=== PATIENT | male | born 1955 | race Caucasian/White ===

== ENCOUNTER → 2020-07-16 15:53 | Outpatient (CLI) | payer OTHER, SELFPAY ==
[2020-07-16 16:54] LABS: Basophils # 0.1 K/mm3 (0-0.2); Basophils % 1.2 % (0.1-2.0); Eosinophils # 0.2 K/mm3 (0.0-0.4); Eosinophils % 2.6 % (0.1-12.0); Hematocrit 46.9 % (42.0-52.0); Hemoglobin 16.6 g/dL (14.1-18.0); Lymphocytes # 2.9 K/mm3 (0.7-4.5); Lymphocytes % 40.4 % (10-50); Mean Corpuscular HGB Conc 35.4 g/dL (31.8-35.4); Mean Corpuscular Hemoglobin 30.9 pg (27.0-31.2); Mean Corpuscular Volume 87.4 fl (80-94); Mean Platelet Volume 9.1 fl (7.4-10.4); Monocytes # 0.4 K/mm3 (0.1-1.0); Monocytes % 5.7 % (1.7-9.3); Neutrophils # 3.6 K/mm3 (1.8-7.8); Neutrophils % 50.1 % (37.0-80.0); Platelet Count 213 K/mm3 (142-424); Red Blood Count 5.37 M/mm3 (4.60-6.20); Red Cell Distribution Width 13.5 % (11.5-17.5); White Blood Count 7.3 K/mm3 (4.8-10.8)
[2020-07-16 17:30] LABS: Alanine Aminotransferase 59 U/L (12-78); Albumin Level 4.5 g/dl (3.5-5.0); Albumin/Globulin Ratio 1.6 (1.1-1.8); Alkaline Phosphatase 57 U/L (38-126); Anion Gap 13.3 mEq/L (5-15); Aspartate Amino Transferase 51 U/L (17-59); Bilirubin,Total 0.5 mg/dl (0.2-1.3); Blood Urea Nitrogen 15 mg/dl (9-20); Carbon Dioxide 32 mmol/L (22.0-30.0); Chloride 96 mmol/L (98-107); Chol/HDL Ratio 3.7 (1-3.5); Cholesterol 201 mg/dl (140-200); Estimated Glomerular Filt Rate 98 ml/min (>60); GFR (African American) 118 ML/MIN (>60); Globulin 2.9 g/dL (1.3-3.2); Glucose 161 mg/dl (74-100); HDL Cholesterol 55 mg/dl (40-60); Potassium 4.3 mmoL/L (3.5-5.1); Sodium 137 mmol/L (136-145); Total Protein,Serum 7.4 g/dl (6.3-8.2); Triglycerides 202 mg/dl (30-150); VLDL Cholesterol 40 mg/dL (0-40)
[2020-07-16 17:40] LABS: Direct LDL Cholesterol 96.56 mg/dL (100-129)
[2020-07-16 18:00] LABS: Prostate Specific Ag Screen 1.6 ng/ml (0.0-4.0)
== END ==
PROVIDERS: Visit Provider Family Medicine
DX: I10 Essential (primary) hypertension (principal); E78.5 Hyperlipidemia, unspecified; Z12.5 Encounter for screening for malignant neoplasm of prostate; Z98.890 Other specified postprocedural states; Z85.820 Personal history of malignant melanoma of skin
CPT/HCPCS: 80053; 80061; 85025; G0103

== ENCOUNTER → 2022-03-04 08:40 | Outpatient (CLI) | payer OTHER, SELFPAY ==
[2022-03-04 14:18] LABS: Hemoglobin A1C 8.8 % (4.0-6.0)
== END ==
PROVIDERS: PCP Family Medicine; Visit Provider Family Medicine
DX: R73.9 Hyperglycemia, unspecified (principal); Z79.84 Long term (current) use of oral hypoglycemic drugs
CPT/HCPCS: 83036

== ENCOUNTER → 2022-06-28 17:37 | Outpatient (CLI) | payer OTHER, SELFPAY ==
[2022-06-28 15:34] LABS: Alanine Aminotransferase 46 U/L (12-78); Albumin Level 4.6 g/dl (3.5-5.0); Albumin/Globulin Ratio 1.7 (1.1-1.8); Alkaline Phosphatase 53 U/L (38-126); Anion Gap 12.1 mEq/L (5-15); Aspartate Amino Transferase 43 U/L (17-59); Bilirubin,Total 0.4 mg/dl (0.2-1.3); Blood Urea Nitrogen 18 mg/dl (9-20); Calcium 9.9 mg/dl (8.4-10.2); Carbon Dioxide 30 mmol/L (22.0-30.0); Chloride 101 mmol/L (98-107); Chol/HDL Ratio 3.8 (1-3.5); Cholesterol 177 mg/dl (140-200); Estimated Glomerular Filt Rate 85 ml/min (>60); GFR (African American) 102 ML/MIN (>60); Globulin 2.7 g/dL (1.3-3.2); Glucose 147 mg/dl (74-100); HDL Cholesterol 46 mg/dl (40-60); Potassium 4.1 mmoL/L (3.5-5.1); Sodium 139 mmol/L (136-145); Total Protein,Serum 7.3 g/dl (6.3-8.2); Triglycerides 202 mg/dl (30-150); VLDL Cholesterol 40 mg/dL (0-40)
[2022-06-28 15:40] LABS: Basophils # 0.2 K/mm3 (0-0.2); Basophils % 2.8 % (0.1-2.0); Eosinophils # 0.1 K/mm3 (0.0-0.4); Eosinophils % 1.7 % (0.1-12.0); Hematocrit 48.6 % (42.0-52.0); Hemoglobin 16.3 g/dL (14.1-18.0); Lymphocytes % 37.6 % (10-50); Mean Corpuscular HGB Conc 33.4 g/dL (31.8-35.4); Mean Corpuscular Hemoglobin 30.6 pg (27.0-31.2); Mean Corpuscular Volume 91.4 fl (80-94); Mean Platelet Volume 9.8 fl (7.4-10.4); Monocytes # 0.4 K/mm3 (0.1-1.0); Monocytes % 5.4 % (1.7-9.3); Neutrophils # 4.2 K/mm3 (1.8-7.8); Neutrophils % 52.5 % (37.0-80.0); Platelet Count 283 K/mm3 (142-424); Red Blood Count 5.32 M/mm3 (4.60-6.20); White Blood Count 8.1 K/mm3 (4.8-10.8)
[2022-06-28 15:58] LABS: Hemoglobin A1C 7.5 % (4.0-6.0)
[2022-06-28 16:05] LABS: Prostate Specific Ag Screen 1.8 ng/ml (0.0-4.0)
[2022-06-30 08:46] LABS: Direct LDL Cholesterol 92 mg/dL (100-129)
== END ==
LOC: LAB.DROPOF 17:38
PROVIDERS: PCP Family Medicine; Visit Provider Family Medicine
DX: E78.5 Hyperlipidemia, unspecified (principal); I10 Essential (primary) hypertension; E11.9 Type 2 diabetes mellitus without complications; Z79.84 Long term (current) use of oral hypoglycemic drugs; Z12.5 Encounter for screening for malignant neoplasm of prostate
CPT/HCPCS: 80053; 80061; 83036; 85025; G0103

== ENCOUNTER 2023-12-20 19:19 | Outpatient (CLI) | payer MEDICARE, SELFPAY ==
[2023-12-20 18:26] LABS: Alanine Aminotransferase 50 U/L (12-78); Albumin Level 4.3 g/dl (3.5-5.0); Albumin/Globulin Ratio 1.7 (1.1-1.8); Alkaline Phosphatase 64 U/L (38-126); Anion Gap 10.9 mEq/L (5-15); Aspartate Amino Transferase 41 U/L (17-59); Bilirubin,Total 0.5 mg/dl (0.2-1.3); Blood Urea Nitrogen 16 mg/dl (9-20); Calcium 9.3 mg/dl (8.4-10.2); Carbon Dioxide 31 mmol/L (22.0-30.0); Chloride 98 mmol/L (98-107); Cholesterol 194 mg/dl (140-200); Estimated Glomerular Filt Rate 84 ml/min (>60); GFR (African American) 102 ML/MIN (>60); Globulin 2.5 g/dL (1.3-3.2); Glucose 281 mg/dl (74-100); HDL Cholesterol 39 mg/dl (40-60); Potassium 3.9 mmoL/L (3.5-5.1); Sodium 136 mmol/L (136-145); Total Protein,Serum 6.8 g/dl (6.3-8.2); Triglycerides 293 mg/dl (30-150); VLDL Cholesterol 59 mg/dL (0-40)
[2023-12-20 18:30] LABS: Basophils # 0.1 K/mm3 (0-0.2); Basophils % 1.3 % (0.1-2.0); Eosinophils # 0.2 K/mm3 (0.0-0.4); Hematocrit 47.4 % (42.0-52.0); Hemoglobin 16.7 g/dL (14.1-18.0); Lymphocytes # 3.6 K/mm3 (0.7-4.5); Lymphocytes % 44.2 % (10-50); Mean Corpuscular HGB Conc 35.3 g/dL (31.8-35.4); Mean Corpuscular Hemoglobin 30.8 pg (27.0-31.2); Mean Corpuscular Volume 87.2 fl (80-94); Mean Platelet Volume 8.6 fl (7.4-10.4); Monocytes # 0.6 K/mm3 (0.1-1.0); Monocytes % 6.8 % (1.7-9.3); Neutrophils # 3.7 K/mm3 (1.8-7.8); Neutrophils % 45.7 % (37.0-80.0); Platelet Count 201 K/mm3 (142-424); Red Blood Count 5.43 M/mm3 (4.60-6.20); Red Cell Distribution Width 13.2 % (11.5-17.5); White Blood Count 8.2 K/mm3 (4.8-10.8)
[2023-12-20 18:36] LABS: Direct LDL Cholesterol 92.35 mg/dL (100-129)
[2023-12-20 18:56] LABS: Prostate Specific Ag Screen 1.7 ng/ml (0.0-4.0)
[2023-12-20 21:52] LABS: Hemoglobin A1C 10.9 % (4.0-6.0)
== END 2023-12-20 23:59 ==
LOC: LAB.DROPOF 19:19
PROVIDERS: PCP Family Medicine; Visit Provider Family Medicine
DX: R73.03 Prediabetes (principal); E78.5 Hyperlipidemia, unspecified; I10 Essential (primary) hypertension; Z12.5 Encounter for screening for malignant neoplasm of prostate
CPT/HCPCS: 80053; 80061; 83036; 85025; G0103

== ENCOUNTER 2024-12-04 16:10 | Outpatient (CLI) | payer MEDICARE, SELFPAY ==
[2024-12-04 19:15] LABS: Microalbumin/Creatinine Ratio 14.4
[2024-12-04 19:31] LABS: Creatinine,Urine Random 49 mg/dL (Not Estab.)
== END 2024-12-04 23:59 | disposition home or self-care (01) ==
LOC: LAB.DROPOF 12-05 10:26
PROVIDERS: PCP Family Medicine; Visit Provider Family Medicine
DX: E11.9 Type 2 diabetes mellitus without complications (principal)
CPT/HCPCS: 82043; 82570

== ENCOUNTER 2025-06-11 16:05 | Outpatient (CLI) | payer MEDICARE, SELFPAY ==
--- OUTSIDE RECORDS SUMMARY | 2025-06-02 06:00 | XMS_ITS | Encounter Summary ---
Author Organization [place] [address] Care Team Providers Care Contracting Analyst Name Role Phone Andreea Bright MD Unavailable [phone] Encounter Details Date Type Department Care Team (Latest Contact Info) Description 06/02/2025 6:00 AM EDT - 06/02/2025 11:59 PM EDT Hospital Encounter [facility] [address] [facility] [place] [address] Hyperlipidemia associated with type 2 diabetes mellitus (HCC); Type 2 diabetes mellitus with hyperglycemia, without long-term current use of insulin (HCC) Discharge Disposition: Home or Self Care Social History Tobacco Use Types Packs/Day Years Used Date Smoking Tobacco: Never Smokeless Tobacco: Never Alcohol Use Standard Drinks/Week Comments No 0 (1 standard drink = 0.6 oz pur e alcohol) PHQ-2 Answer Date Recorded PHQ-2 Score 0 04/05/2019 Sexually Active Control Partners Comments Yes Female Sex and Gender Information Value Date Recorded Sex Assigned at Not on file Legal Sex Male 12:12 AM EDT Gender Identity Not on file Sexual Orientation Not on file documented as of this encounter Functional Status * Is the person deaf or does he/she have serious difficulty hearing? Answer Date of Assessment Author No 06/27/2018 9:11 AM EDT Luca Howard CMA * Is the person blind or does he/she have serious difficulty seeing even when wearing glasses? Answer Date of Assessment Author No 06/27/2018 9:11 AM EDT Luca Howard CMA * Does this person have serious difficulty walking or climbing stairs? Answer Date of Assessment Author No 06/27/2018 9:11 AM Luca Penn CMA * Does this person have difficulty dressing or bathing? Answer Date of Assessment Author No 06/27/2018 9:11 AM Luca Penn CMA * Because of a physical, mental or emotional condition, does this person have difficulty doing errands alone such as visiting a doctor's office or shopping? Answer Date of Assessment Author No 06/27/2018 9:11 AM Luca Penn CMA documented as of this encounter Mental Status * Because of a physical, mental or emotional condition, does this person have serious difficulty concentrating, remembering or making decisions? Answer Entry Date Author No 06/27/2018 9:11 AM Luca Penn CMA documented in this encounter Medications at Time of Discharge DEXCOM G7 SENSOR Misc Device use as directed 10/13/2024 fexofenadine (CHARITY ALLERGY) 180 mg Oral Tablet Take 180 mg by mouth daily. fluticasone (FLONASE) 50 mcg/actuation Nasl [place], SuspensionIndicat ions:Chronic allergic rhinitis 1 [place] by Nasal route daily. 1 Bottle 2 07/31/2018 glimepiride (AMARYL) 2 mg Oral TabletIndications :Type 2 diabetes mellitus with hyperglycemia, without long-term current use of insulin (HCC) Take 1 Tablet by mouth daily. 30 Tablet 11 10/25/2024 lisinopril-hydroc hlorothiazide (PRINZIDE;ZESTORE TIC) 20-25 mg Oral Tablet Take 1 Tab by mouth daily. 90 Tab 1 07/26/2018 simvastatin (ZOCOR) 40 mg Oral Tablet Take 1 Tab by mouth daily. 90 Tab 1 07/26/2018 documented as of this encounter Discharge Disposition Disposition Code Departure Means Destination Home or Self Care documented in this encounter Plan of Treatment Not on file documented as of this encounter Goals Goal Patient Goal Type Associated Problems Recent Progress Patient-Stated? Author Blood Pressure < 140/90 Blood Pressure 120/70(2023 1:37 PM EST) Tyler Otero MD Maintain a healthy diet, exercise regularly and maintain an ideal body weight General No Dutle, Rafia Bri, SORORITY MOTHER documented as of this encounter Procedures Procedure Name Priority Date/Time Associated Diagnosis Comments LIPID PANEL REFLEX Routine 06/02/2025 6: 34 AM EDT Hyperlipidemia associated with type 2 diabetes mellitus (HCC) HEMOGLOBIN A1C Routine 06/02/2025 6:34 AM EDT Type 2 diabetes mellitus with hyperglycemia, without long-term current use of insulin (HCC) COMPREHENSIVE METABOLIC PANEL Routine 06/02/2025 6:34 AM EDT Type 2 diabetes mellitus with hyperglycemia, without long-term current use of insulin (HCC) documented in this encounter Results * HEMOGLOBIN A1C (06/02/2025 6:34 AM EDT) Hgb A1C 5.5 4.2 - 5.6 % 06/02/2025 4:21 PM EDT [facility] Est. Avg Glucose 111 mg/dL 06/02/2025 4:21 PM EDT [facility] Blood VENOUS BLOOD / Unknown Venipuncture / Unknown 06/02/2025 6:34 AM EDT 06/02/2025 6:34 AM EDT Narrative [facility] - 06/02/2025 4:21 PM EDT REFERENCE RANGE: Normal: 4.0-5.6% Pre-diabetes: 5.7-6.4% Provisional diagnosis of diabetes: >6.4% Hgb F>10% and anything which shortens red cell survival, such as hemolytic anemia, or unstable hemoglobin variants such as HbSS, HbSC, or HbCC, will lower the HbA1c value associated with a given level of glycemic control. us Andreea Bright MD CHEMISTRY ORDERABLES Final Re sult [facility] [address] [facility] , [place] [address] * (ABNORMAL) COMPREHENSIVE METABOLIC PANEL (06/02/2025 6:34 AM EDT) Sodium 140 136 - 145 mmol/L 06/02/2025 9:35 AM EDT [facility] Potassium 4.3 3.5 - 5.0 mmol/L 06/02/2025 9:35 AM EDT [facility] Chloride 104 98 - 107 mmol/L 06/02/2025 9:35 AM EDT [facility] Total CO2 25 22 - 29 mmol/L 06/02/2025 9:35 AM EDT [facility] Anion Gap 11 7 - 16 mmol/L 06/02/2025 9:35 AM EDT [facility] Calcium 9.5 8.8 - 10.4 mg/dL 06/02/2025 9:35 AM EDT [facility] Glucose Lvl 131(H) 70 - 99 mg/dL 06/02/2025 9:35 AM EDT [facility] BUN 18 8 - 23 mg/dL 06/02/2025 9:35 AM EDT [facility] Creatinine 1.01 0.67 - 1.30 mg/dL 06/02/2025 9:35 AM EDT [facility] Albumin 4.5 3.2 - 4.6 gm/dL 06/02/2025 9:35 AM EDT [facility] Total Protein 7.4 6.4 - 8.3 gm/dL 06/02/2025 9:35 AM EDT [facility] Bili Total 0.4 0.2 - 1.4 mg/dL 06/02/2025 9:35 AM EDT [facility] ALT 12 <=41 U/L 06/02/2025 9:35 AM EDT [facility] AST 15 <=40 U/L 06/02/2025 9:35 AM EDT [facility] Alk Phos 57 40 - 129 U/L 06/02/2025 9:35 AM EDT [facility] eGFR (CKD-EPIcr 2020) 81 >=60 mL/min/1.7 3 m2 06/02/2025 9:35 AM EDT [facility] Comment:Estimated GFR was ca lculated using the CKD-EPIcr (2020) equation refit without race. The equation is recommended by the National Kidney Foundation - [place] [employer] of Nephrology Task Force. Blood VENOUS BLOOD / Unknown Venipuncture / Unknown 06/02/2025 6:34 AM EDT 06/02/2025 6:34 AM EDT us Andreea Bright MD CHEMISTRY ORDERABLES Final Re sult Performing Organization Address City/[facility]/ZIP Co de Phone Number [facility] [address] [facility] , [place] [address] * (ABNORMAL) LIPID PANEL REFLEX (06/02/2025 6:34 AM EDT) Cholesterol 224(H) <200 mg/dL 06/02/2025 9:35 AM EDT [facility] Comment: < 200 Desirable 200 - 239 Borderline High >= 240 High Triglyceride 168(H) <150 mg/dL 06/02/2025 9:35 AM EDT [facility] Comment: < 150 Normal 150 - 199 Borderline High 200 - 499 High >= 500 Very High HDL 46 >=40 mg/dL 06/02/2025 9:35 AM EDT [facility] Comment: > 60 Optimal 40 - 60 Acceptable < 40 Low LDL Calculated 148(H) <100 mg/dL 06/02/2025 9:35 AM EDT [facility] Comment: < 100 Optimal 100 - 129 Near or above optimal 130 - 159 Borderline High 160 - 189 High >= 190 Very High The National Institutes of Health (NIH) equation is used for all lipid panels that report calculated LDL (LDL-C). Non-HDL-C Calculated 178(H) <=129 mg/dL 06/02/2025 9:35 AM EDT [facility] Comment: <130 Desirable 130-159 Above Desirable 160-189 Borderline High 190-219 High >= 220 Very High Fasting Specimen? Yes None 025 9:35 AM EDT [facility] Blood VENOUS BLOOD / Unknown Venipuncture / Unknown 06/02/2025 6:34 AM EDT 06/02/2025 6:34 AM EDT us Andreea Bright MD CHEMISTRY ORDERABLES Final Re sult Performing Organization Address City/[facility]/ZIP Co de Phone Number [facility] [address], [place] [address] documented in this encounter Visit Diagnoses Diagnosis Hyperlipidemia associated with type 2 diabetes mellitus (HCC) Type 2 diabetes mellitus with hyperglycemia, without long-term current use of insulin (HCC) documented in this encounter Care Teams Contracting Analyst Relationship Specialty Start Date End Date Andreea Bright MD [address] [place] [address] Internal Medicine-Endocrinology, Diabetes & Metabolism 04/17/24 documented as of this encounter
[2025-06-11 20:24] LABS: Hepatitis C Ab Qual. W/ RFX NEGATIVE (Negative)
--- OUTSIDE RECORDS SUMMARY | 2025-06-12 10:40 | XMS_ITS | Encounter Summary ---
Author Organization [place] [address] Care Team Providers Care Operator Helper Name Role Phone Andreea Bright MD Unavailable [phone] Encounter Details Date Type Department Care Team (Latest Contact Info) Description 06/03/2025 Results Follow-Up [facility] Diabetes [address] [address] Andreea Bright MD [address] [place] [address] LIPID PANEL REFLEX, COMPREHENSIVE METABOLIC PANEL, HEMOGLOBIN A1C Social History Tobacco Use Types Packs/Day Years [...] Howard CMA * Does this person have difficulty dressing or bathing? Answer Date of Assessment Author No 06/27/2018 9:11 AM EDT Luca Howard CMA * Because of a physical, mental or emotional condition, does this person have difficulty doing errands alone such as visiting a doctor's office or shopping? Answer Date of Assessment Author No 06/27/2018 9:11 AM EDT Luca Howard CMA documented as of this encounter Mental Status * Because of a physical, mental or emotional condition, does this person have serious difficulty concentrating, remembering or making decisions? Answer Entry Date Author No 06/27/2018 9:11 AM EDT Luca Howard CMA documented in this encounter Miscellaneous Notes * Telephone Encounter - Juan Dangelo - 06/03/2025 9:01 AM EDT Tried to call- no VM. Sullivan ----- Message from Andreea Bright MD sent at 06/03/2025 6:51 AM EDT ----- Needs to be seen to review the test results. Thank you ----- Message ----- From: Lab, Background User Sent: 06/02/2025 9:35 AM EDT To: Andreea Bright MD documented in this encounter Plan of Treatment Not on file documented as of this encounter Goals Goal Patient Goal Type Associated Problems Recent Progress Patient-Stated? Author Blood Pressure < 140/90 Blood Pressure 120/70(2023 1:37 PM EST) Tyler Otero MD Maintain a healthy diet, exercise regularly and maintain an ideal body weight General Rafia Jeter CMA documented as of this encounter Visit Diagnoses Not on filedocumented in this encounter Care Teams Operator Helper Relationship Specialty Start Date End Date Andreea Bright MD [address] [place] [address] Internal Medicine-Endocrinology, Diabetes & Metabolism 04/17/24 documented as of this encounter
--- OUTSIDE RECORDS SUMMARY | 2025-06-12 10:40 | XMS_ITS | Clinical Summary ---
Author Organization [facility] [place] Address [address] [place] [address] Phone Care Team Providers Care Director Of Planning Name Role Phone Andreea Bright MD Unavailable [phone] Allergies No known active allergies Medications lisinopril-hydr ochlorothiazide (PRINZIDE;ZESTO RETIC) 20-25 mg Oral Tablet Take 1 Tab by mouth daily. 90 Tab 1 07/26/2018 Active simvastatin (ZOCOR) 40 mg Oral Tablet Take 1 Tab by mouth daily. 90 Tab 1 07/26/2018 Active fexofenadine (CHARITY ALLERGY) 180 mg Oral Tablet Take 180 mg by mouth daily. Active fluticasone (FLONASE) 50 mcg/actuation Nasl [place], SuspensionIndic ations:Chronic allergic rhinitis 1 [place] by Nasal route daily. 1 Bottle 2 07/31/2018 Active DEXCOM G7 SENSOR [facility] Device use as directed 10/13/2024 Active glimepiride (AMARYL) 2 mg Oral TabletIndicatio ns:Type 2 diabetes mellitus with hyperglycemia, without long-term current use of insulin (HCC) Take 1 Tablet by mouth daily. 30 Tablet 11 10/25/2024 Active Active Problems Problem Noted Date Diagnosed Date Type 2 diabetes mellitus wit h hyperglycemia, without long-term current use of insulin 04/16/2024 Assessment & Plan (10/27/2024 9:40 PM EST): Glycemic control is stable and at goal. He is to continue present medication regimen for now Assessment & Plan (04/17/2024 9:43 PM EDT): Different aspects of diabetes care as well as treatment goals were discussed with the patient at length. Glycemic control has improved and is at goal. #1. The patient is to continue using Dexcom #2. He is to continue present pharmacological regimen. The patient is to have a teaching session with a childbirth educator. The patient is to be screened for diabetes related complications according to ADA guidelines. Hypertension associated with type 2 diabetes ginny litus 06/27/2018 Assessment & Plan (10/27/2024 9:40 PM EST): Blood pressure is well controlled on a current medication regimen. The patient is to continue present medication regimen. Assessment & Plan (04/17/2024 9:42 PM EDT): Blood pressure is well controlled on a current medication regimen. The patient is to continue present medication regimen. Hyperlipidemia associated with type 2 diabetes suraj gifford 06/27/2018 Assessment & Plan (10/27/2024 9:40 PM EST): Continue statin regimen. The patient is to have fasting lipid profile done prior to the next visit Assessment & Plan (04/17/2024 9:43 PM EDT): Continue statin regimen History of melanoma 06/27/2018 Overview (06/27/2018): May 2009. Left leg. S/p surgical excision. Encounters Date Type Department Care Team Description 06/03/2025 Results Follow-Up SEP Diabetes [facility] [address] [place] [address] [place] [id number] Andreea Bright MD LIPID PANEL REFLEX, COMPREHENSIVE METABOLIC PANEL, HEMOGLOBIN A1C 06/02/2025 6:00 AM EDT - 06/02/2025 11:59 PM EDT Hospital Encounter [facility] [address] [place] [address] Hyperlipidemia associated with type 2 diabetes mellitus (HCC); Type 2 diabetes mellitus with hyperglycemia, without long-term current use of insulin (HCC) Discharge Disposition: Home or Self Care from Last 3 Months Surgical History Surgery Date Site/Laterality Comments SKIN CANCER EXCISION 05/13/2009 - 06/12/2009 Left left leg HERNIA REPAIR CATARACT EXTRACTION EXTRACAP SULAR W/ INTRAOCULAR LENS IMPLANTATION Bilateral Family History Medical History Relation Name Comments Heart Attack Father Heart Disease Father stents Hypertension Father Heart Attack Maternal Grandfather Heart Attack Maternal Uncle Relation Name Status Comments Father Alive Maternal Grandfather Maternal Uncle Mother Alive Social History Tobacco Use Types Packs/Day Years [...] on file Sexual Orientation Not on file Obstetrics History Last Filed Vital Signs Vital Sign Reading Time Taken Comments Blood Pressure 120/70 10/25/2024 1:37 PM EST Pulse 76 10/25/2024 1:37 PM EST Temperature 36.6 C (97.8 F) 07/31/2018 8:32 AM EDT Respiratory Rate 16 10/25/2024 1:37 PM EST Oxygen Saturation 96% 07/31/2018 8:32 AM EDT Inhaled Oxygen Concentration - - Weight 77.3 kg (170 lb 6.4 oz) 10/25/2024 1:37 P M EST Height 168.9 cm (5' 6.5 ) 10/25/2024 1:37 PM EST Body Mass Index 27.09 10/25/2024 1:37 PM EST Plan of Treatment Health Maintenance Due Date Last Done Comments Wellness Exam Medicare 1960 Kidney Health: uACR 1967 Hepatitis C Screening 1975 DTaP/TDaP/Td (1 - Tdap) 1976 Pneumococcal Vaccine 50+ (1 of 2 - PCV) 1976 Cologuard 2002 Colon Cancer Screening 2002 Colonoscopy 2002 FIT 2002 Sigmoidoscopy 2002 Virtual Colonography 2002 Zoster (2 of 2) 05/06/2024 03/11/2024 COVID-19 Vaccine (3 - season) 2024 04/05/2021, 03/08/2021 Influenza Vaccine (#1) 2025 Hemoglobin A1c 12/03/2025 06/02/2025, 10/13, 04/17/2024, Additional history exists Kidney Health: eGFR 06/02/2026 06/02/2025, 10/25/2024, 04/09/2024, Additional history exists Lipids 06/02/2026 06/02/2025, 04/09/2024 Diabetic Eye Exam 10/25/2026 10/25/2024 Hepatitis B Vaccine Aged Out No longe r eligible based on patient's age to complete this topic Meningococcal B Vaccine Aged Out No l onger eligible based on patient's age to complete this topic Goals Goal Patient Goal Type Associated Problems Recent Progress Patient-Stated? Author Blood Pressure < 140/90 Blood Pressure 120/70(2023 1:37 PM EST) Tyler Otero MD Maintain a healthy diet, exercise regularly and maintain an ideal body weight General Rafia Jeter, CMS EXPERT Procedures Procedure Name Priority Date/Time Associated Diagnosis Comments HEMOGLOBIN A1C Routine 06/02/2025 6:34 AM EDT Type 2 diabetes mellitus with hyperglycemia, without long-term current use of insulin (HCC) COMPREHENSIVE METABOLIC PANEL Routine 06/02/2025 6:34 AM EDT Type 2 diabetes mellitus with hyperglycemia, without long-term current use of insulin (HCC) LIPID PANEL REFLEX Routine 06/02/2025 6: 34 AM EDT Hyperlipidemia associated with type 2 diabetes mellitus (HCC) from Last 3 Months Results * (ABNORMAL) LIPID PANEL REFLEX (06/02/2025 6:34 AM EDT) Cholesterol 224(H) <200 mg/dL 06/02/2025 9:35 AM EDT [facility] Comment: < 200 Desirable 200 - 239 Borderline High >= 240 High Triglyceride 168(H) <150 mg/dL 06/02/2025 9:35 AM EDT [facility] Comment: < 150 Normal 150 - 199 Borderline High 200 - 499 High >= 500 Very High HDL 46 >=40 mg/dL 06/02/2025 9:35 AM EDT [facility] Comment: > 60 Optimal 40 - 60 Acceptable < 40 Low LDL Calculated 148(H) <100 mg/dL 06/02/2025 9:35 AM EDT [facility] Comment: < 100 Optimal 100 - 129 Near or above optimal 130 - 159 Borderline High 160 - 189 High >= 190 Very High The National Institutes of Health (NIH) equation is used for all lipid panels that report calculated LDL (LDL-C). Non-HDL-C Calculated 178(H) <=129 mg/dL 06/02/2025 9:35 AM EDT [facility] Comment: <130 Desirable 130-159 Above Desirable 160-189 Borderline High 190-219 High >= 220 Very High Fasting Specimen? Yes None 025 9:35 AM EDT [facility] Blood VENOUS BLOOD / Unknown Venipuncture / Unknown 06/02/2025 6:34 AM EDT 06/02/2025 6:34 AM EDT us Andreea Bright MD CHEMISTRY ORDERABLES Final Re sult [facility] [address] [facility] , [address] [place] [id number] * HEMOGLOBIN A1C (06/02/2025 6:34 AM EDT) Hgb A1C 5.5 4.2 - 5.6 % 06/02/2025 4:21 PM EDT [facility] Est. Avg Glucose 111 mg/dL 06/02/2025 4:21 PM EDT [facility] Blood VENOUS BLOOD / Unknown Venipuncture / Unknown 06/02/2025 6:34 AM EDT 06/02/2025 6:34 AM EDT Narrative [facility] - 06/02/2025 4:21 PM EDT REFERENCE RANGE: Normal: 4.0-5.6% Pre-diabetes: 5.7-6.4% Provisional diagnosis of diabetes: >6.4% Hgb F>10% and anything which shortens red cell survival, such as hemolytic anemia, or unstable hemoglobin variants such as HbSS, HbSC, or HbCC, will lower the HbA1c value associated with a given level of glycemic control. us Andreea Bright MD CHEMISTRY ORDERABLES Final Re sult [facility] [address] [facility] , [place] [address] * (ABNORMAL) COMPREHENSIVE METABOLIC PANEL (06/02/2025 6:34 AM EDT) Sodium 140 136 - 145 mmol/L 06/02/2025 9:35 AM EDT [facility] Potassium 4.3 3.5 - 5.0 mmol/L 06/02/2025 9:35 AM EDT [facility] Chloride 104 98 - 107 mmol/L 06/02/2025 9:35 AM EDT [facility] Total CO2 25 22 - 29 mmol/L 06/02/2025 9:35 AM EDT [facility] Anion Gap 11 7 - 16 mmol/L 06/02/2025 9:35 AM EDT [facility] Calcium 9.5 8.8 - 10.4 mg/dL 06/02/2025 9:35 AM EDT [facility] Glucose Lvl 131(H) 70 - 99 mg/dL 06/02/2025 9:35 AM EDT [facility] BUN 18 8 - 23 mg/dL 06/02/2025 9:35 AM EDT [facility] Creatinine 1.01 0.67 - 1.30 mg/dL 06/02/2025 9:35 AM EDT [facility] Albumin 4.5 3.2 - 4.6 gm/dL 06/02/2025 9:35 AM EDT [facility] Total Protein 7.4 6.4 - 8.3 gm/dL 06/02/2025 9:35 AM EDT [facility] Bili Total 0.4 0.2 - 1.4 mg/dL 06/02/2025 9:35 AM EDT [facility] ALT 12 <=41 U/L 06/02/2025 9:35 AM EDT [facility] AST 15 <=40 U/L 06/02/2025 9:35 AM EDT [facility] [employer] Alk Phos 57 40 - 129 U/L 06/02/2025 9:35 AM EDT [facility] eGFR (CKD-EPIcr 2020) 81 >=60 mL/min/1.7 3 m2 06/02/2025 9:35 AM EDT [facility] Comment:Estimated GFR was ca lculated using the CKD-EPIcr (2020) equation refit without race. The equation is recommended by the National Kidney Foundation - [place] [employer] of Nephrology Task Force. Blood VENOUS BLOOD / Unknown Venipuncture / Unknown 06/02/2025 6:34 AM EDT 06/02/2025 6:34 AM EDT us Andreea Bright MD CHEMISTRY ORDERABLES Final Re sult [facility] [address] [facility] [address] [place] [address] from Last 3 Months Insurance [facility] [employer]IC[facility] [employer]VANTAGE MR Member Subscriber Plan / Payer (Ef fective 2023-Present) Name:Esvin Marx Relation to Subscriber:Self Name:Esvin Marx Payer ID:Not on file Group ID:Not on file Type:Not on file Address: [place] [phone] Care Teams Director Of Planning Relationship Specialty Start Date End Date Adnreea Bright MD [address] [place] [address] Internal Medicine-Endocrinology, Diabetes & Metabolism 04/17/24
[2025-06-13 05:11] LABS: Hepatitis B Surface Antigen Negative (Negative)
== END 2025-06-11 23:59 | disposition home or self-care (01) ==
LOC: LAB.DROPOF 06-12 10:31
PROVIDERS: PCP Family Medicine; Visit Provider Family Medicine
DX: Z11.59 Encounter for screening for other viral diseases (principal); Z12.5 Encounter for screening for malignant neoplasm of prostate
CPT/HCPCS: 86803; 87340; 87389; G0103

== ENCOUNTER 2025-10-01 16:36 | Outpatient (CLI) | payer MEDICARE, SELFPAY ==
[2025-10-01 19:15] LABS: Hematocrit 42.9 % (42.0-52.0); Hemoglobin 15.3 g/dL (14.1-18.0); Immature Granulocytes % 0.4 %; Mean Corpuscular HGB Conc 35.7 g/dL (31.8-35.4); Mean Corpuscular Hemoglobin 29.4 pg (27.0-31.2); Mean Corpuscular Volume 82.3 fl (80-94); Nucleated Red Blood Cells % 0 %; Platelet Count 218 K/mm3 (142-424); Red Blood Count 5.21 M/mm3 (4.60-6.20); Red Cell Distribution Width-SD 39.2 fL; White Blood Count 8.1 K/mm3 (4.8-10.8)
[2025-10-01 19:40] LABS: Alanine Aminotransferase 19 U/L (12-78); Albumin Level 4.6 g/dl (3.5-5.0); Albumin/Globulin Ratio 1.8 (1.1-1.8); Alkaline Phosphatase 62 U/L (38-126); Anion Gap 12.0 mEq/L (5-15); Aspartate Amino Transferase 26 U/L (17-59); Bilirubin,Total 0.6 mg/dl (0.2-1.3); Blood Urea Nitrogen 16 mg/dl (9-20); Calcium 9.7 mg/dl (8.4-10.2); Carbon Dioxide 25 mmol/L (22.0-30.0); Chloride 102 mmol/L (98-107); Cholesterol 220 mg/dl (140-200); Creatinine,Serum 0.90 mg/dl (0.66-1.25); Estimated Glomerular Filt Rate 84 ml/min (>60); GFR (African American) 102 ML/MIN (>60); Globulin 2.5 g/dL (1.3-3.2); Glucose 111 mg/dl (74-100); HDL Cholesterol 49 mg/dl (40-60); Potassium 4.0 mmoL/L (3.5-5.1); Sodium 135 mmol/L (136-145); Total Protein,Serum 7.1 g/dl (6.3-8.2); Triglycerides 341 mg/dl (30-150)
== END 2025-10-01 23:59 ==
LOC: LAB.DROPOF 10-02 10:42
PROVIDERS: PCP Family Medicine; Visit Provider Family Medicine
DX: E78.5 Hyperlipidemia, unspecified (principal); E11.9 Type 2 diabetes mellitus without complications; I10 Essential (primary) hypertension
CPT/HCPCS: 80053; 80061; 85025